=== PATIENT | male | born 1975 | race American Indian/Alaskan Native ===

== ENCOUNTER 2017-05-09 14:28 | Emergency (ER) | payer MEDICARE ==
[2017-05-09 14:50] VITALS: BP 130/89
[2017-05-09 15:08] LABS: Hematocrit 37.9 % (35.5-45.6); Hemoglobin 11.9 gm/dl (11.8-15.2); Mean Corpuscular HGB Conc 32 % (32-34); Platelet Count 177 K/mm3 (140-440); Red Blood Count 5.91 M/mm3 (3.65-5.03); Red Cell Distribution Width 17.4 % (13.2-15.2); White Blood Count 7.4 K/mm3 (4.5-11.0)
[2017-05-09 15:09] LABS: Mean Corpuscular Hemoglobin 20 pg (28-32); Mean Corpuscular Volume 64 fl (84-94)
[2017-05-09 15:24] LABS: BUN/Creatinine Ratio 12; Blood Urea Nitrogen 13 mg/dL (9-20); Calcium 8.9 mg/dL (8.4-10.2); Carbon Dioxide 26 mmol/L (22-30); Glucose 94 mg/dL (75-100)
[2017-05-09 15:25] LABS: Anion Gap 16 mmol/L; Chloride 101.2 mmol/L (98-107); Potassium 4.6 mmol/L (3.6-5.0); Sodium 139 mmol/L (137-145)
[2017-05-09 16:20] LABS: Blastocytes % (Manual) 0 %; Eosinophils % (Manual) 0 % (0.0-4.3)
[2017-05-09 16:24] LABS: Hypochromasia 2+; Microcytosis 2+
[2017-05-09 16:25] LABS: Poikilocytosis 1+; Target Cells 1+
[2017-05-09 16:26] LABS: Diff Status Complete; Giant Platelets Few; Platelet Estimate Consistent w Auto
[2017-05-09 17:30] LABS: Albumin/Globulin Ratio 1.1 %; Bilirubin,Direct 0.2 mg/dL (0-0.2); Bilirubin,Indirect 1.1 mg/dL; Bilirubin,Total 1.3 mg/dL (0.1-1.2); Total Protein 7.8 g/dL (6.3-8.2)
== END 2017-05-09 19:30 | disposition left against medical advice (07) ==
LOC: ED 14:28
DX: R07.9 Chest pain, unspecified (principal); Z53.21 Procedure and treatment not carried out due to patient leaving prior to being seen by health care provider
CPT/HCPCS: 36415; 80048; 80074; 82150; 83690; 84484; 85007; 85025; 93005; 93010

== ENCOUNTER 2017-05-10 07:53 | Emergency (ER) | payer MEDICARE ==
[2017-05-10 08:51] LABS: Eosinophils % (Auto) 1.1 % (0.0-4.3)
[2017-05-10 09:03] LABS: Hemoglobin 11.7 gm/dl (11.8-15.2); Red Blood Count 5.67 M/mm3 (3.65-5.03); White Blood Count 6.6 K/mm3 (4.5-11.0)
[2017-05-10 09:04] LABS: Basophils % (Auto) 0.4 % (0.0-1.8); Hematocrit 35.5 % (35.5-45.6); Mean Corpuscular HGB Conc 33 % (32-34); Mean Corpuscular Hemoglobin 21 pg (28-32); Mean Corpuscular Volume 63 fl (84-94); Platelet Count 174 K/mm3 (140-440); Red Cell Distribution Width 16.8 % (13.2-15.2)
[2017-05-10 09:18] LABS: Anion Gap 18 mmol/L; BUN/Creatinine Ratio 15; Blood Urea Nitrogen 15 mg/dL (9-20); Calcium 8.4 mg/dL (8.4-10.2); Carbon Dioxide 23 mmol/L (22-30); Chloride 99.1 mmol/L (98-107); Glucose 108 mg/dL (75-100); Potassium 4.1 mmol/L (3.6-5.0); Sodium 136 mmol/L (137-145)
--- NOTE | 2017-05-10 16:16 | Emergency Department Report ---
ED Chest Pain HPI - General Chief Complaint: Chest Pain Stated Complaint: CHEST PAIN Time Seen by Provider: 05/10/17 15:56 Source: patient Mode of arrival: Ambulatory Limitations: No Limitations - History of Present Illness Initial Comments: Patient complains of left lateral chest pain which she has had for the past 3 weeks. He cannot identify a precipitating or mitigating element. He states the pain is sharp and not pleuritic. It is not associated with cough nor dyspnea. He denies nausea vomiting sweating dizziness or any other associated symptoms. This is his first encounter for evaluation. He states additionally is never got to the emergency department for chest pain before. He states he occasionally smokes but denies any usage of absences of abuse. MD Complaint: chest pain -: week(s) Onset: during rest Pain Location: left chest Pain Radiation: none Severity: moderate Severity scale (0 -10): 6 Quality: sharp Consistency: intermittent Improves With: nothing Worsens With: nothing re: denies: nausea, vomting, diaphoresis, dyspnea, sense of impending doom Other Symptoms: denies: cough, fever, syncope Treatments Prior to Arrival: none Aspirin use within the Past 7 Days: (0) No - Related Data Previous Rx's Medication Instructions Recorded Last Taken Type Naproxen [Naprosyn] 500 mg PO Q12H PRN #10 tablet 05/10/17 Unknown Rx Allergies Allergy/AdvReac Type Severity Reaction Status Date / Time No Known Allergies Allergy Verified 05/09/17 14:48 Heart Score - HEART Score History: Slightly suspicious EKG: Normal Age: < 45 Risk factors: No known risk factors Troponin: < normal limit HEART Score: 0 ED Review of Systems ROS: Stated complaint: CHEST PAIN Other details as noted in HPI Constitutional: denies: chills, fever Eyes: denies: eye pain, eye discharge, vision change ENT: denies: ear pain, throat pain Respiratory: denies: cough, shortness of breath, wheezing Cardiovascular: chest pain. denies: palpitations Endocrine: no symptoms reported Gastrointestinal: denies: abdominal pain, nausea, diarrhea Genitourinary: denies: urgency, dysuria Musculoskeletal: denies: back pain, joint swelling, arthralgia Skin: denies: rash, lesions Neurological: denies: headache, weakness, paresthesias Psychiatric: denies: anxiety, depression Hematological/Lymphatic: denies: easy bleeding, easy bruising ED Past Medical Hx - Past Medical History Previous Medical History?: No - Surgical History Past Surgical History?: No - Social History Smoking Status: Current Some Day Smoker Substance Use Type: Alcohol - Medications Home Medications: Home Medications Medication Instructions Recorded Confirmed Last Taken Type Naproxen [Naprosyn] 500 mg PO Q12H PRN #10 tablet 05/10/17 Unknown Rx ED Physical Exam - General Limitations: No Limitations General appearance: alert, in no apparent distress - Head Head exam: Present: atraumatic, normocephalic - Eye Eye exam: Present: normal appearance - ENT ENT exam: Present: normal exam, mucous membranes moist - Neck Neck exam: Present: normal inspection - Respiratory Respiratory exam: Present: normal lung sounds bilaterally, chest wall tenderness (left lateral chest wall). Absent: respiratory distress - Cardiovascular Cardiovascular Exam: Present: regular rate, normal rhythm. Absent: systolic murmur, diastolic murmur, rubs, gallop - GI/Abdominal GI/Abdominal exam: Present: soft, normal bowel sounds. Absent: distended, tenderness, guarding, rebound, rigid - Rectal Rectal exam: Present: deferred - Extremities Exam Extremities exam: Present: normal inspection - Back Exam Back exam: Present: normal inspection - Neurological Exam Neurological exam: Present: alert, oriented X3, CN II-XII intact. Absent: motor sensory deficit - Psychiatric Psychiatric exam: Present: normal affect, normal mood - Skin Skin exam: Present: warm, dry, intact, normal color. Absent: rash ED Course Vital Signs 05/10/17 05/10/17 08:08 15:45 Temperature 98.7 F Pulse Rate 69 61 Respiratory 16 17 Rate Blood Pressure 120/82 Blood Pressure 117/72 [Right] O2 Sat by Pulse 99 99 Oximetry - Reevaluation(s) Reevaluation #1: Patient resting comfortably. Indeed, took a nap in the emergency department. He will be referred for outpatient follow-up. 05/10/17 17:09 ED Medical Decision Making - Lab Data Result diagrams: 05/10/17 08:32 05/10/17 08:35 Laboratory Results - last 24 hr 05/10/17 05/10/17 05/10/17 08:32 08:35 15:14 WBC 6.6 RBC 5.67 H Hgb 11.7 L Hct 35.5 MCV 63 L MCH 21 L MCHC 33 RDW 16.8 H Plt Count 174 Lymph % (Auto) 35.[address] [place] % (Auto) 8.7 H Eos % (Auto) 1.1 Baso % (Auto) 0.4 Lymph # 2.3 [place] # 0.6 Eos # 0.1 Baso # 0.0 Seg Neutrophils % 57.7 Seg Neutrophils # 3.7 Sodium 136 L Potassium 4.1 Chloride 99.1 Carbon Dioxide 23 Anion Gap 18 BUN 15 Creatinine 1.0 Estimated GFR > 60 BUN/Creatinine Ratio 15 Glucose 108 H Calcium 8.4 Troponin T < 0.010 < 0.010 - EKG Data -: EKG Interpreted by Me EKG shows normal: sinus rhythm, axis, intervals, QRS complexes, ST-T waves Rate: normal - EKG Data Interpretation: normal EKG - Radiology Data interpreted by me: Chest x-ray no acute process. Critical care attestation.: If time is entered above; I have spent that time in minutes in the direct care of this critically ill patient, excluding procedure time. ED Disposition Clinical Impression: Chest wall pain Disposition: DC- TO HOME OR SELFCARE Is pt being admited?: No Does the pt Need Aspirin: No Condition: Stable Instructions: Chest Pain (ED), Costochondritis (ED) Additional Instructions: Follow up with the [facility]. Return if any acute change or problem. Prescriptions: Naproxen [Naprosyn] 500 mg PO Q12H PRN #10 tablet PRN Reason: Pain Referrals: PRIMARY CARE, [Primary Care Provider] - 3-5 Days Time of Disposition: 17:12
--- NOTE | 2017-05-10 16:54 | XRay Report ---
FINAL REPORT PROCEDURE: Chest. TECHNIQUE: Frontal and lateral views. HISTORY: Chest pain. COMPARISON: No prior studies are available for comparison. FINDINGS: The heart and mediastinum appear normal. The lungs are clear and well expanded. There are no pleural effusions. The soft tissues and regional skeleton are unremarkable. IMPRESSION: No evidence of acute disease.
[2017-05-10 17:48] VITALS: BP 112/62
== END 2017-05-10 17:25 | disposition home or self-care (01) ==
LOC: ED 07:53
DX: R07.89 Other chest pain (principal); F17.200 Nicotine dependence, unspecified, uncomplicated
CPT/HCPCS: 36415; 71020; 80048; 84484; 85025; 93005; 93010; 99284